=== PATIENT | male | born 1960 | race Two or more races ===

== ENCOUNTER 2017-12-29 07:30 | Day surgery (SDC) | payer BC ==
--- NOTE | 2017-12-29 08:52 | EDM.PDOC ---
ED HPI GENERAL MEDICAL PROBLEM - General Chief Complaint: Gastrointestinal Problem Stated Complaint: rectal pain Time Seen by Provider: 12/29/17 08:50 Source of Information: Reports: Patient History Limitations: Reports: No Limitations - History of Present Illness INITIAL COMMENTS - FREE TEXT/NARRATIVE: 57 yo M presents with rectal pain. States he's had a longstanding hx of hemorrhoids but has had severe pain for past 2 days which is new.States he intermittently has some rectal bleeding and has had some mild bleeding over the past couple of days. Pain has become very severe x 2 days. Can't sit. No relieving factors. Denies additional symptoms. No fever. No abdominal pain/ vomiting. No cough/SOB/CP/lightheadedness/dizziness/syncope. Rectal Pain Score (Numeric/FACES): 8 - Related Data Allergies Allergy/AdvReac Type Severity Reaction Status Date / Time No Known Allergies Allergy Verified 12/29/17 11:03 Home Meds: Home Meds . [No Known Home Meds] 12/29/17 [History] ED ROS GENERAL - Review of Systems Review Of Systems: See Below Constitutional: Denies: Fever HEENT: Reports: No Symptoms Respiratory: Denies: Shortness of Breath Cardiovascular: Denies: Chest Pain GI/Abdominal: Denies: Abdominal Pain : Reports: No Symptoms. Denies: Dysuria Musculoskeletal: Reports: No Symptoms Neurological: Reports: No Symptoms Psychiatric: Reports: No Symptoms Hematologic/Lymphatic: Reports: No Symptoms Immunologic: Reports: No Symptoms ED EXAM, GI/ABD - Physical Exam Exam: See Below Exam Limited By: No Limitations General Appearance: Alert, WD/WN, No Apparent Distress Nose: Normal Inspection Throat/Mouth: Normal Inspection, Normal Oropharynx, Normal Voice, No Airway Compromise Head: Atraumatic, Normocephalic Neck: Normal Inspection Respiratory/Chest: No Respiratory Distress, Lungs Clear, Normal Breath Sounds, Chest Non-Tender Cardiovascular: Normal Peripheral Pulses, Regular Rate, Rhythm, No Edema, No Murmur GI/Abdominal Exam: Soft, Non-Tender, No Distention. No: Rebound Rectal (Males) Exam: Hemorrhoids (several large external hemorrhoids, likely prolapsed internal hemorrhoids are present, no active bleeding, no surrounding mass/erythema) Extremities: Normal Inspection Neurological: Alert, Oriented, Normal Cognition Psychiatric: Normal Affect, Normal Mood Skin Exam: Warm, Dry, Intact, Normal Color, No Rash Course - Vital Signs Last Recorded V/S: Last Vital Signs Temp 36.1 C 12/29/17 14:05 Pulse 99 12/29/17 14:05 Resp 13 12/29/17 14:05 BP 127/89 12/29/17 14:05 Pulse Ox 99 12/29/17 14:05 - Orders/Labs/Meds Orders: Active Orders 24 hr Category Date Time Status Patient Status [ADT] Routine ADT 12/29/17 10:48 Active Patient Status [ADT] Routine ADT 12/29/17 13:47 Active Antiembolic Devices [RC] .Routine Care 12/29/17 13:48 Active Communication Order [RC] ASDIRECTED Care 12/29/17 13:51 Active Communication Order [RC] ROUTINE Care 12/29/17 12:59 Active Cooling Warming Measures [RC] ASDIRECTED Care 12/29/17 12:59 Active Notify Provider [RC] ASDIRECTED Care 12/29/17 12:59 Active Oxygen Therapy [RC] ASDIRECTED Care 12/29/17 12:59 Active Oxygen Therapy [RC] PRN Care 12/29/17 13:47 Active Peripheral IV Care [RC] . DIRECTED Care 12/29/17 08:58 Active Peripheral IV Care [RC] . DIRECTED Care 12/29/17 08:59 Active Pulse Oximetry [RC] ASDIRECTED Care 12/29/17 12:59 Active VTE/DVT Education [RC] PER UNIT ROUTINE Care 12/29/17 13:48 Active Vital Signs [RC] PER UNIT ROUTINE Care 12/29/17 13:47 Active Vital Signs [RC] Q15M Care 12/29/17 12:59 Active Regular Diet [DIET] Diet 12/29/17 Dinner Active Acetaminophen/oxyCODONE [Percocet 325-5 MG] Med 12/29/17 13:49 Active 1 - 2 tab PO Q4H PRN HYDROmorphone [Dilaudid] Med 12/29/17 13:50 Active 0.4 mg IVPUSH Q2H PRN Ondansetron [Zofran] Med 12/29/17 12:59 Active 4 mg IVPUSH ONETIME PRN Ondansetron [Zofran] Med 12/29/17 13:50 Active 4 mg IVPUSH Q8H PRN Sodium Chloride 0.9% [Saline Flush] Med 12/29/17 08:59 Active 10 ml FLUSH ASDIRECTED PRN diphenhydrAMINE [Benadryl] Med 12/29/17 12:59 Active 25 mg IVPUSH Q6H PRN fentaNYL [Sublimaze] Med 12/29/17 12:59 Active 50 mcg IVPUSH Q5M PRN DVT/VTE Prophylaxis Reflex [OM.PC] Routine Oth 12/29/17 13:47 Ordered Peripheral IV Insertion Adult [OM.PC] Routine Oth 12/29/17 08:58 Ordered Schedule Procedure [COMM] Urgent Oth 12/29/17 10:30 Ordered Sequential Compression Device [OM.PC] Per Unit Routine Oth 12/29/17 13:48 Ordered Resuscitation Status Routine Resus Stat 12/29/17 13:47 Ordered Medication Orders Diphenhydramine HCl (Benadryl) 25 mg IVPUSH Q6H PRN PRN Reason: pruritis Stop: 12/29/17 18:00 Fentanyl (Sublimaze) 50 mcg IVPUSH Q5M PRN PRN Reason: Pain Stop: 12/29/17 18:00 Hydromorphone HCl (Dilaudid) 0.4 mg IVPUSH Q2H PRN PRN Reason: Pain Ondansetron HCl (Zofran) 4 mg IVPUSH ONETIME PRN PRN Reason: Nausea/Vomiting Stop: 12/29/17 18:00 Ondansetron HCl (Zofran) 4 mg IVPUSH Q8H PRN PRN Reason: Nausea/Vomiting Oxycodone/Acetaminophen (Percocet 325-5 Mg) 1 - 2 tab PO Q4H PRN PRN Reason: Pain Sodium Chloride (Saline Flush) 10 ml FLUSH ASDIRECTED PRN PRN Reason: Keep Vein Open Stop: 12/29/17 18:00 Last Admin: 12/29/17 09:53 Dose: 10 ml Labs: Laboratory Tests 12/29/17 12/29/17 Range/Units 09:30 09:30 WBC 8.66 (4.23-9.07) K/mm3 RBC 5.23 (4.63-6.08) M/mm3 Hgb 15.2 (13.7-17.5) gm/L Hct 46.3 (40.1-51.0) % MCV 88.5 (79.0-92.2) fl MCH 29.1 (25.7-32.2) pg MCHC 32.8 (32.2-35.5) g/dl RDW Std Deviation 42.0 (35.1-43.9) fL Plt Count 341 H (163-337) K/mm3 MPV 10.4 (9.4-12.3) fl Neut % (Auto) 72.5 H (34.0-67.9) % Lymph % (Auto) 18.7 L (21.8-53.1) % Yell % (Auto) 7.7 (5.3-12.2) % Eos % (Auto) 0.7 L (0.8-7.0) Baso % (Auto) 0.3 (0.1-1.2) % Neut # (Auto) 6.27 H (1.78-5.38) K/mm3 Lymph # (Auto) 1.62 (1.32-3.57) K/mm3 Yell # (Auto) 0.67 (0.30-0.82) K/mm3 Eos # (Auto) 0.06 (0.04-0.54) K/mm3 Baso # (Auto) 0.03 (0.01-0.08) K/mm3 Sodium 138 (136-145) mEq/L Potassium 3.7 (3.5-5.1) mEq/L Chloride 102 (98-107) mEq/L Carbon Dioxide 25 (21-32) mEq/L Anion Gap 14.7 (5-15) BUN 16 (7-18) mg/dL Creatinine 1.1 (0.7-1.3) mg/dL Est Cr Clr Drug Dosing 63.67 mL/min Estimated GFR (MDRD) > 60 (>60) mL/min BUN/Creatinine Ratio 14.5 (14-18) Glucose 107 H (74-106) mg/dL Calcium 9.3 (8.5-10.1) mg/dL Total Bilirubin 1.2 H (0.2-1.0) mg/dL AST 21 (15-37) U/L ALT 38 (16-63) U/L Alkaline Phosphatase 131 H (46-116) U/L Total Protein 8.5 H (6.4-8.2) g/dl Albumin 4.3 (3.4-5.0) g/dl Globulin 4.2 gm/dL Albumin/Globulin Ratio 1.0 (1-2) Meds: Medications Generic Name Dose Route Start Last Admin Trade Name Freq PRN Reason Stop Dose Admin Diphenhydramine HCl 25 mg 12/29/17 12:59 Benadryl IVPUSH 12/29/17 18:00 Q6H PRN pruritis Fentanyl 50 mcg 12/29/17 12:59 Sublimaze IVPUSH 12/29/17 18:00 Q5M PRN Pain Hydromorphone HCl 0.4 mg 12/29/17 13:50 Dilaudid IVPUSH Q2H PRN Pain Ondansetron HCl 4 mg 12/29/17 12:59 Zofran IVPUSH 12/29/17 18:00 ONETIME PRN Nausea/Vomiting Ondansetron HCl 4 mg 12/29/17 13:50 Zofran IVPUSH Q8H PRN Nausea/Vomiting Oxycodone/Acetaminophen 1 - 2 tab 12/29/17 13:49 Percocet 325-5 Mg PO Q4H PRN Pain Sodium Chloride 10 ml 12/29/17 08:59 12/29/17 09:53 Saline Flush FLUSH 12/29/17 18:00 10 ml ASDIRECTED PRN Administration Keep Vein Open Discontinued Medications Generic Name Dose Route Start Last Admin Trade Name Freq PRN Reason Stop Dose Admin Bupivacaine HCl Confirm 12/29/17 10:57 12/29/17 11:54 Marcaine 0.5% Administered 12/29/17 10:58 10 ml Dose Administration 30 ml .ROUTE .STK-MED ONE Dexamethasone Confirm 12/29/17 12:30 Dexamethasone Administered 12/29/17 12:31 Dose 20 mg .ROUTE .STK-MED ONE Dibucaine Confirm 12/29/17 12:30 12/29/17 12:31 Nupercainal 1% Oint Administered 12/29/17 12:31 5 gm Dose Administration 28.35 gm .ROUTE .STK-MED ONE Fentanyl Confirm 12/29/17 11:14 Sublimaze Administered 12/29/17 11:15 Dose 250 mcg .ROUTE .STK-MED ONE Gelatin Confirm 12/29/17 10:57 12/29/17 12:30 Gelfoam Size 100 Administered 12/29/17 10:58 1 each Dose Administration 1 each TOP .STK-MED ONE Glycopyrrolate Confirm 12/29/17 11:44 Administered 12/29/17 11:45 Dose 1 mg .ROUTE .STK-MED ONE Hydromorphone HCl 1 mg 12/29/17 08:59 12/29/17 09:54 Dilaudid IVPUSH 12/29/17 09:00 1 mg ONETIME ONE Administration Metronidazole 500 mg/ Premix 100 mls @ 100 mls/hr 12/29/17 10:32 12/29/17 11: 16 IV 12/29/17 11:31 100 mls/hr ONETIME ONE Administration Levofloxacin/Dextrose 500 mg/ 100 mls @ 100 mls/hr 12/29/17 10:32 12/29/17 11 :16 Premix IV 12/29/17 11:31 100 mls/hr ONETIME ONE Administration Lidocaine HCl Confirm 12/29/17 11:14 Xylocaine-Mpf 1% Administered 12/29/17 11:15 Dose 4 mls @ as directed .ROUTE .STK-MED ONE Lactated Ringer's Confirm 12/29/17 12:37 Ringers, Lactated Administered 12/29/17 12:38 Dose 1,000 mls @ as directed .ROUTE .STK-MED ONE Lactated Ringer's Confirm 12/29/17 12:37 Ringers, Lactated Administered 12/29/17 12:38 Dose 1,000 mls @ as directed .ROUTE .STK-MED ONE Ketorolac Tromethamine Confirm 12/29/17 12:30 Toradol Administered 12/29/17 12:31 Dose 30 mg .ROUTE .STK-MED ONE Lidocaine HCl Confirm 12/29/17 10:55 12/29/17 12:30 Xylocaine 2% Jelly Administered 12/29/17 10:56 5 ml Dose Administration 5 ml .ROUTE .STK-MED ONE Lidocaine HCl Confirm 12/29/17 10:57 Xylocaine 2% Jelly Administered 12/29/17 10:58 Dose 5 ml .ROUTE .STK-MED ONE Lidocaine HCl Confirm 12/29/17 11:09 Xylocaine 2% Jelly Administered 12/29/17 11:10 Dose 5 ml .ROUTE .STK-MED ONE Lidocaine/Epinephrine Confirm 12/29/17 10:56 12/29/17 11:54 Xylocaine 1% With Epinephrine 1:100,000 Administered 12/29/17 10:57 10 ml Dose Administration 20 ml .ROUTE .STK-MED ONE Midazolam HCl Confirm 12/29/17 11:14 Versed 1 Mg/Ml Administered 12/29/17 11:15 Dose 2 mg .ROUTE .STK-MED ONE Neostigmine Methylsulfate Confirm 12/29/17 11:44 Neostigmine Administered 12/29/17 11:45 Dose 5 mg .ROUTE .STK-MED ONE Ondansetron HCl 4 mg 12/29/17 08:59 12/29/17 09:52 Zofran IVPUSH 12/29/17 09:00 4 mg ONETIME ONE Administration Ondansetron HCl Confirm 12/29/17 11:13 Zofran Administered 12/29/17 11:14 Dose 4 mg .ROUTE .STK-MED ONE Phenylephrine HCl Confirm 12/29/17 11:44 Phenylephrine In Ns 100 Mcg/Ml Administered 12/29/17 11:45 Dose 1 mg .ROUTE .STK-MED ONE Phenylephrine HCl Confirm 12/29/17 12:31 Phenylephrine In Ns 100 Mcg/Ml Administered 12/29/17 12:32 Dose 1 mg .ROUTE .STK-MED ONE Propofol Confirm 12/29/17 11:14 Diprivan 20 Ml Administered 12/29/17 11:15 Dose 200 mg .ROUTE .STK-MED ONE Rocuronium [place] Confirm 12/29/17 11:13 Zemuron Administered 12/29/17 11:14 Dose 50 mg .ROUTE .STK-MED ONE - Re-Assessments/Exams Free Text/Narrative Re-Assessment/Exam: 12/29/17 09:07 Labs show normal CBC/chemistry. Pain meds ordered. Discussed with Dr. Ventura who will eval the patient in the ED. Updated plan is to go to OR to address multiple prolapsed internal hemorrhoids. 12/29/17 15:34 12/29/17 15:34 Departure - Departure Time of Disposition: 12:00 Disposition: DC/Tfer to [facility] Clinical Impression: Prolapsed internal hemorrhoids - Discharge Information - My Orders Last 24 Hours: My Active Orders 12/29/17 08:58 Peripheral IV Care [RC] . DIRECTED Peripheral IV Insertion Adult [OM.PC] Routine 12/29/17 08:59 Peripheral IV Care [RC] . DIRECTED Sodium Chloride 0.9% [Saline Flush] 10 ml FLUSH ASDIRECTED PRN 12/29/17 10:48 Patient Status [ADT] Routine - Assessment/Plan Last 24 Hours: My Active Orders 12/29/17 08:58 Peripheral IV Care [RC] . DIRECTED Peripheral IV Insertion Adult [OM.PC] Routine 12/29/17 08:59 Peripheral IV Care [RC] . DIRECTED Sodium Chloride 0.9% [Saline Flush] 10 ml FLUSH ASDIRECTED PRN 12/29/17 10:48 Patient Status [ADT] Routine
[2017-12-29] MEDS ORDERED: HYDROmorphone 0.5 MG/0.5 ML SYRINGE IVPUSH ONE (08:59)
[2017-12-29] MEDS ORDERED: Ondansetron 4 MG/2 ML SDV IVPUSH ONE (08:59)
[2017-12-29] MEDS ORDERED: Sodium Chloride 0.9% 10 ML Syringe FLUSH PRN (08:59)
[2017-12-29] MEDS ORDERED: metroNIDAZOLE/Normal Saline 500 MG in Premix Bag 1 BAG IV ONE (10:32)
[2017-12-29] MEDS ORDERED: Levofloxacin/Dextrose 5%-Water 500 MG in Premix Bag 1 BAG IV ONE (10:32)
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
[2017-12-29] MEDS ORDERED: Lidocaine 2% Jelly 5 ML Tube ONE ×3 (10:55→11:09)
[2017-12-29] MEDS ORDERED: Lidocaine 1% with EPINEPHrine 1:100,000 20 ML MDV ONE (10:56)
[2017-12-29] MEDS ORDERED: Bupivacaine 0.5% 30 ML SDV ONE (10:57)
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
[2017-12-29] MEDS ORDERED: Ondansetron 4 MG/2 ML SDV ONE (11:13)
[2017-12-29] MEDS ORDERED: Rocuronium 50 MG/5 ML Vial ONE (11:13)
[2017-12-29] MEDS ORDERED: Propofol 200 MG/20 ML SDV ONE (11:14)
[2017-12-29] MEDS ORDERED: Midazolam 1 MG/ML 2 ML SDV ONE (11:14)
[2017-12-29] MEDS ORDERED: fentaNYL 250 MCG/5 ML SDV ONE (11:14)
[2017-12-29] MEDS ORDERED: Lidocaine 1% 4 ML ONE (11:14)
[2017-12-29] MEDS ORDERED: Phenylephrine/Normal Saline 100 MCG/ML 10 ML Syringe ONE ×2 (11:44→12:31)
[2017-12-29] MEDS ORDERED: Neostigmine Methylsulfate 1 MG/ML 5 ML Syringe ONE (11:44)
[2017-12-29] MEDS ORDERED: Dexamethasone 4 MG/ML 5 ML MDV ONE (12:30)
[2017-12-29] MEDS ORDERED: Ketorolac 30 MG/ML SDV ONE (12:30)
[2017-12-29] MEDS ORDERED: Lactated Ringers 1,000 ML ONE ×2 (12:37)
[2017-12-29] MEDS ORDERED: Ondansetron 4 MG/2 ML SDV IVPUSH PRN ×2 (12:59→13:50)
[2017-12-29] MEDS ORDERED: fentaNYL 100 MCG/2 ML SDV IVPUSH PRN (12:59)
[2017-12-29] MEDS ORDERED: diphenhydrAMINE 50 MG/ML SDV IVPUSH PRN (12:59)
--- NOTE | 2017-12-29 12:59 | PCM.POSTAN ---
POST ANESTHESIA ASSESSMENT - MENTAL STATUS Mental Status: Other (drowsy ) - VITAL SIGNS Pulse Rate: 72 SaO2: 100 Resp Rate: 19 Blood Pressure: 130/76 Temperature: 36.2 C - RESPIRATORY Respiratory Status: Respiratory Rate WNL, Airway Patent, O2 Saturation Stable - CARDIOVASCULAR CV Status: Pulse Rate WNL, Blood Pressure Stable - GASTROINTESTINAL GI Status: No Symptoms - PAIN Pain Score: 0 - POST OP HYDRATION Hydration Status: Adequate & Stable
[2017-12-29] MEDS ORDERED: Acetaminophen/oxyCODONE 325-5 MG Tab PO PRN (13:49)
[2017-12-29] MEDS ORDERED: HYDROmorphone 0.5 MG/0.5 ML Syringe IVPUSH PRN (13:50)
--- NOTE | 2017-12-29 13:55 | PCM.OPNOTE ---
- General Post-Op/Procedure Note Date of Surgery/Procedure: 12/29/17 Operative Procedure(s): 1) Anorectal exam under anesthesia. 2) Hemorrhoidectomy. 3) Hemorrhoidal banding Findings: Prolapsed grade IV internal hemorrhoids. 2-column hemorrhoidectomy (LEFT lateral and RIGHT posterior) performed. 1-column hemorrhoidal (RIGHT anterior) banding performed. Pre Op Diagnosis: prolapsed non-reducible internal hemorrhoids Post-Op Diagnosis: prolapsed non-reducible internal hemorrhoids Anesthesia Technique: General ET Tube Primary Surgeon: Mayank Emanuel Secondary Surgeon: Ulices Swanson Anesthesia Provider: Kamryn Clifton Fluid Replacement, Intraop: 1,000 (crystalloid) EBL in mLs: 5 Condition: Good Free Text/Narrative:: Indications for surgery: The patient is a 57 yo male, with a history of hemorrhoidal disease, presents with severe pain and mild bleeding from the anal region. On exam, he is noted to have multiple grade IV prolapsed hemorrhoids. He was consented for anorectal exam under anesthesia and hemorrhoidectomy, with other indicated procedures. Indications, risks, and benefits were discussed with the patient and her parents in detail. Description of procedure: After surgical consent was verified, the patient was brought to the main OR. Anesthesia performed general endotracheal intubation without complications. He was re-positioned to the prone valerie-knife position. Appropriate padding and straps were placed. SCD's were on and functioning. Perioperative antibiotics ( metronidazole IV and levofloxacin IV) was administered. A surgical time-out was performed to verify proper patient, proper site, and proper procedure. A perianal block was performed with local anesthetic (1:1 solution of 1% lidocaine with epinephrine and 0.5% bupivacaine). Attempts at reducing the prolapsed internal hemorrhoids were partially successful. Anoscopy was performed , which showed significant hemorrhoidal disease, specifically at the LEFT lateral and RIGHT posterior columns. Attention was first turned to the LEFT lateral hemorrhoidal column. A 2-0 Vicryl suture was placed at the proximal aspect of the hemorrhoidal column, at the apex to cut off the hemorrhoidal pedicle. An incision was made along the perianal skin at the distal aspect of the LEFT lateral hemorrhoidal column. The hemorrhoidal tissue was carefully dissected off the underlying anal sphincter. Using a harmonic scalpel, the hemorrhoidal column was resected. The 2-0 Vicryl suture that was anchored at the apex was used to close the mucosal defect, leaving a small opening at the distal aspect to allow drainage. The same procedure was performed on the RIGHT posterior hemorrhoidal column, using the harmonic scalpel. The RIGHT anterior hemorrhoidal column was enlarged, but not prolapsed. Rubber band ligation was performed at the proximal aspect of this hemorrhoidal column. Hemostasis was ensured. A piece of Gelfoam with local anesthetic ointment and lidocaine jelly was placed into the anus. The surgical site was covered with 4x4 gauze and secured with mesh panties. The patient tolerated the procedure well, was extubated, and transported to the PACU in stable condition. At the end of the case, all needle, instrument, and gauze counts were correct. I was presented and scrubbed for the entirety of the case. Mayank Emanuel M.D., F.A.C.S. General Surgery Pager: [phone]
--- NOTE | 2017-12-30 10:14 | PCM.PN ---
- General Info Date of Service: 12/30/17 Admission Dx/Problem (Free Text): Overnight, no acute events. Pain has been controlled with Percocet. Tolerating regular diet. No BM since surgery. - Patient Data Vitals - Most Recent: Last Vital Signs Temp 36.8 C 12/30/17 05:25 Pulse 60 12/30/17 05:25 Resp 12 12/30/17 05:25 BP 128/68 12/30/17 05:25 Pulse Ox 96 12/30/17 05:25 Weight - Most Recent: 63.503 kg I&O - Last 24 Hours: Intake & Output 12/29/17 12/30/17 12/30/17 22:59 06:59 14:59 Intake Total 1100 600 120 Output Total 450 Balance 1100 150 120 Med Orders - Current: Current Medications Hydromorphone HCl (Dilaudid) 0.4 mg IVPUSH Q2H PRN PRN Reason: Pain Ondansetron HCl (Zofran) 4 mg IVPUSH Q8H PRN PRN Reason: Nausea/Vomiting Oxycodone/Acetaminophen (Percocet 325-5 Mg) 1 - 2 tab PO Q4H PRN PRN Reason: Pain Last Admin: 12/30/17 01:36 Dose: 2 tab Discontinued Medications Bupivacaine HCl (Marcaine 0.5%) Confirm Administered Dose 30 ml .ROUTE .STK-MED ONE Stop: 12/29/17 10:58 Last Admin: 12/29/17 11:54 Dose: 10 ml Dexamethasone (Dexamethasone) Confirm Administered Dose 20 mg .ROUTE .STK-MED ONE Stop: 12/29/17 12:31 Dibucaine (Nupercainal 1% Oint) Confirm Administered Dose 28.35 gm .ROUTE .STK- MED ONE Stop: 12/29/17 12:31 Last Admin: 12/29/17 12:31 Dose: 5 gm Diphenhydramine HCl (Benadryl) 25 mg IVPUSH Q6H PRN PRN Reason: pruritis Stop: 12/29/17 18:00 Fentanyl (Sublimaze) Confirm Administered Dose 250 mcg .ROUTE .STK-MED ONE Stop: 12/29/17 11:15 Fentanyl (Sublimaze) 50 mcg IVPUSH Q5M PRN PRN Reason: Pain Stop: 12/29/17 18:00 Gelatin (Gelfoam Size 100) Confirm Administered Dose 1 each TOP .[facility]-MED ONE Stop: 12/29/17 10:58 Last Admin: 12/29/17 12:30 Dose: 1 each Glycopyrrolate () Confirm Administered Dose 1 mg .ROUTE .ST-MED ONE Stop: 12/29/17 11:45 Hydromorphone HCl (Dilaudid) 1 mg IVPUSH ONETIME ONE Stop: 12/29/17 09:00 Last Admin: 12/29/17 09:54 Dose: 1 mg Metronidazole 500 mg/ Premix 100 mls @ 100 mls/hr IV ONETIME ONE Stop: 12/29/17 11:31 Last Admin: 12/29/17 11:16 Dose: 100 mls/hr Levofloxacin/Dextrose 500 mg/ (Premix) 100 mls @ 100 mls/hr IV ONETIME ONE Stop: 12/29/17 11:31 Last Admin: 12/29/17 11:16 Dose: 100 mls/hr Lidocaine HCl (Xylocaine-Mpf 1%) Confirm Administered Dose 4 mls @ as directed .ROUTE .[facility]-MED ONE Stop: 12/29/17 11:15 Lactated Ringer's (Ringers, Lactated) Confirm Administered Dose 1,000 mls @ as directed .ROUTE .[facility]-MED ONE Stop: 12/29/17 12:38 Lactated Ringer's (Ringers, Lactated) Confirm Administered Dose 1,000 mls @ as directed .ROUTE .[facility]-MED ONE Stop: 12/29/17 12:38 Ketorolac Tromethamine (Toradol) Confirm Administered Dose 30 mg .ROUTE .ST- MED ONE Stop: 12/29/17 12:31 Lidocaine HCl (Xylocaine 2% Jelly) Confirm Administered Dose 5 ml .ROUTE .[facility]- MED ONE Stop: 12/29/17 10:56 Last Admin: 12/29/17 12:30 Dose: 5 ml Lidocaine HCl (Xylocaine 2% Jelly) Confirm Administered Dose 5 ml .ROUTE .ST- MED ONE Stop: 12/29/17 10:58 Lidocaine HCl (Xylocaine 2% Jelly) Confirm Administered Dose 5 ml .ROUTE .[facility]- MED ONE Stop: 12/29/17 11:10 Lidocaine/Epinephrine (Xylocaine 1% With Epinephrine 1:100,000) Confirm Administered Dose 20 ml .ROUTE .STK-MED ONE Stop: 12/29/17 10:57 Last Admin: 12/29/17 11:54 Dose: 10 ml Midazolam HCl (Versed 1 Mg/Ml) Confirm Administered Dose 2 mg .ROUTE .STK-MED ONE Stop: 12/29/17 11:15 Neostigmine Methylsulfate (Neostigmine) Confirm Administered Dose 5 mg .ROUTE .STK-MED ONE Stop: 12/29/17 11:45 Ondansetron HCl (Zofran) 4 mg IVPUSH ONETIME ONE Stop: 12/29/17 09:00 Last Admin: 12/29/17 09:52 Dose: 4 mg Ondansetron HCl (Zofran) Confirm Administered Dose 4 mg .ROUTE .STK-MED ONE Stop: 12/29/17 11:14 Ondansetron HCl (Zofran) 4 mg IVPUSH ONETIME PRN PRN Reason: Nausea/Vomiting Stop: 12/29/17 18:00 Phenylephrine HCl (Phenylephrine In Ns 100 Mcg/Ml) Confirm Administered Dose 1 mg .ROUTE .STK-MED ONE Stop: 12/29/17 11:45 Phenylephrine HCl (Phenylephrine In Ns 100 Mcg/Ml) Confirm Administered Dose 1 mg .ROUTE .STK-MED ONE Stop: 12/29/17 12:32 Propofol (Diprivan 20 Ml) Confirm Administered Dose 200 mg .ROUTE .STK-MED ONE Stop: 12/29/17 11:15 Rocuronium Urania (Zemuron) Confirm Administered Dose 50 mg .ROUTE .STK-MED ONE Stop: 12/29/17 11:14 Sodium Chloride (Saline Flush) 10 ml FLUSH ASDIRECTED PRN PRN Reason: Keep Vein Open Stop: 12/29/17 18:00 Last Admin: 12/29/17 09:53 Dose: 10 ml - Exam Physical Findings Comments:: External rectal exam: Surgical site with minimal drainage. Appropriately tender. - Problem List & Annotations (1) Prolapsed internal hemorrhoids, grade 4 SNOMED Code(s): 83180309 Code(s): K64.3 - FOURTH DEGREE HEMORRHOIDS Status: Acute Priority: High Current Visit: Yes - Problem List Review Problem List Initiated/Reviewed/Updated: Yes - My Orders Last 24 Hours: My Active Orders 12/29/17 10:30 Schedule Procedure [COMM] Urgent 12/29/17 13:47 Patient Status [ADT] Routine Vital Signs [RC] 03,09,15,21 DVT/VTE Prophylaxis Reflex [OM.PC] Routine Resuscitation Status Routine 12/29/17 13:48 Antiembolic Devices [RC] 10,22 VTE/DVT Education [RC] 10,22 Sequential Compression Device [OM.PC] Per Unit Routine 12/29/17 13:49 Acetaminophen/oxyCODONE [Percocet 325-5 MG] 1 - 2 tab PO Q4H PRN 12/29/17 13:50 HYDROmorphone [Dilaudid] 0.4 mg IVPUSH Q2H PRN Ondansetron [Zofran] 4 mg IVPUSH Q8H PRN 12/29/17 13:51 Communication Order [RC] 1900 12/29/17 Dinner Regular Diet [DIET] 12/30/17 10:08 Ready for Discharge [RC] PER UNIT ROUTINE - Plan Plan:: 57 yo male, otherwise healthy, POD#1 s/p anorectal exam under anesthesia and 2- column hemorrhoidectomy and 1-column hemorrhoidal banding, doing well. - May discharge home. - Post-op wound care instructions given. - Discussed lifestyle and dietary modifications to avoid constipation and recurrence of hemorrhoidal disease. - F/U in 2-3 weeks. Mayank Emanuel M.D., F.A.C.S. General Surgery Pager: [phone]
== END 2017-12-30 13:10 | disposition home or self-care (01) ==
LOC: JD.ED 07:30 → JD.MS 10:50 → JD.SDS 10:50
PROVIDERS: ATTEND Student in an Organized Health Care Education/Training Program
DX: K64.3 Fourth degree hemorrhoids (principal)
CPT/HCPCS: 36415; 46260; 80053; 85025; 96365; 96368; 96375; 99285; A9270; J1100; J1170; J1885; J1956; J2001; J2250; J2405; J2710; J3010; J7050; J7120; 00902; 99284; J2704

== ENCOUNTER 2018-10-25 11:06 | Emergency (ER) | payer OTHER, BC ==
[2018-10-25] MEDS ORDERED: HYDROmorphone 1 MG/ML Syringe IVPUSH ONE (11:30)
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
--- NOTE | 2018-10-25 15:14 | CR ---
Left femur: Two views of the left femur were obtained. Comparison: No previous study. No fracture or other bony abnormality is appreciated. Impression: 1. No abnormality is appreciated on left femur study. Diagnostic code #1
--- NOTE | 2018-10-25 15:14 | CR ---
Right femur: AP and lateral views of the right femur were obtained. Comparison: No prior femur exam. No fracture or other bony abnormality is seen. Impression: 1. No abnormality is identified on two-view right femur study. Diagnostic code #1
== END 2018-10-25 12:58 | disposition home or self-care (01) ==
LOC: JD.ED 11:06
DX: M79.605 Pain in left leg (principal); M79.604 Pain in right leg
CPT/HCPCS: 73552; 96374; 99284; J1170; 99283